=== PATIENT | female | born 1995 | race Caucasian/White ===

== ENCOUNTER 2017-11-05 07:43 | Outpatient (CLI) | payer OTHER ==
[2017-11-05 09:01] VITALS: BP 99/61
[2017-11-05] MEDS ORDERED: TYLENOL PO NR (09:12)
== END 2017-11-05 09:34 | disposition home or self-care (01) ==
LOC: TRG 07:43
PROVIDERS: ATTEND Obstetrics & Gynecology
DX: O47.1 False labor at or after 37 completed weeks of gestation (principal); Z3A.40 40 weeks gestation of pregnancy
CPT/HCPCS: 59025

== ENCOUNTER 2017-12-04 10:30 | Inpatient (IN) | payer OTHER ==
[2017-12-04] MEDS ORDERED: METHERGINE IM ONE (10:52)
[2017-12-04] MEDS ORDERED: CYTOTEC ONE (10:53)
[2017-12-04] MEDS ORDERED: DERMOPLAST TP PRN (10:56)
[2017-12-04] MEDS ORDERED: PHENERGAN PO PRN (10:56)
[2017-12-04] MEDS ORDERED: ZOFRAN IV PRN (10:56)
[2017-12-04] MEDS ORDERED: TUCKS PAD TP PRN (10:56)
[2017-12-04] MEDS ORDERED: BENADRYL PO PRN (10:56)
[2017-12-04] MEDS ORDERED: TYLENOL PO PRN (10:56)
[2017-12-04] MEDS ORDERED: LANSINOH TP PRN (10:56)
[2017-12-04] MEDS: PITOCin/NS 20 UNIT/1000ML DRIP 20 UNITS/1,000 ML BAG IV SCH ×2 (10:57→13:03)
[2017-12-04] MEDS ORDERED: DULCOLAX PR PRN (11:00)
[2017-12-04] MEDS ORDERED: SODIUM CHLORIDE FLUSH SYRINGE 10 ML IV NR (11:00)
--- NOTE | 2017-12-04 11:00 | History and Physical Report ---
<COLTENJAREK L - Last Filed: 12/04/17 11:05> History of Present Illness Date of examination: 12/04/17 Date of admission: 12/04/17 10:37 Chief complaint: complete upon arrival, no care History of present illness: Tunisian speaking, no Bahamian Language line utilized in obtain history No care Past History - Obstetrical History : 4 Para: 1 Hx # Term Pregnancies: 1 Number of Pregnancies: 0 Spontaneous Abortions: 2 Induced : 0 Number of Living Children: 1 Medications and Allergies Allergies Allergy/AdvReac Type Severity Reaction Status Date / Time No Known Allergies Allergy Verified 11/05/17 07:50 Active Meds: Active Medications Acetaminophen (Tylenol) 650 mg PO Q4H PRN PRN Reason: Pain MILD(1-3)/Fever >100.5/MCKEON Benzocaine/Menthol (Dermoplast) 1 spray TP PRN PRN PRN Reason: Pain, Mild (1-3) Bisacodyl (Dulcolax) 10 mg VT BID PRN PRN Reason: Constipation Diphenhydramine HCl (Benadryl) 25 mg PO Q6H PRN PRN Reason: Itching Docusate Sodium (Colace) 100 mg PO BID ADY Ferrous Sulfate (Feosol) 325 mg PO BID ADY Ibuprofen (Motrin) 600 mg PO Q6H ADY Multi-Ingredient Ointment (Lansinoh) 1 applic TP PRN PRN PRN Reason: Sore Nipples Witch Viola/Glycerin (Tucks Pad) 1 each TP PRN PRN PRN Reason: Hemorrhoid/cleansing/soothing - Obstetrical Cervical Dilatation: 10 Cervical Effacement Percentage: 100 station: +1 Results All other labs normal. Assessment and Plan 22 y/o , no care. Admission orders and labs ordered. - Patient Problems (1) (normal spontaneous vaginal delivery) Current Visit: Yes Status: Acute (2) No care in current Current Visit: Yes Status: Acute Qualifiers: Trimester: third trimester Qualified Code(s): O09.33 - Supervision of with insufficient care, third trimester <JAMILA PATIÑO - Last Filed: 12/04/17 11:49> History of Present Illness Date of admission: 12/04/17 10:37 Chief complaint: History obtained thru language line after delivery([place] [id number]). 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 denies: smoking, alcohol abuse, prescription drug abuse , IV drug use Medications and Allergies Active Meds: Active Medications Acetaminophen (Tylenol) 650 mg PO Q4H PRN PRN Reason: Pain MILD(1-3)/Fever >100.5/MCKEON Benzocaine/Menthol (Dermoplast) 1 spray TP PRN PRN PRN Reason: Pain, Mild (1-3) Bisacodyl (Dulcolax) 10 mg VT BID PRN PRN Reason: Constipation Diphenhydramine HCl (Benadryl) 25 mg PO Q6H PRN PRN Reason: Itching Docusate Sodium (Colace) 100 mg PO BID ADY Ferrous Sulfate (Feosol) 325 mg PO BID ADY Oxytocin/Sodium Chloride (Pitocin/Ns 20 Unit/1000ml Drip) 20 units in 1,000 mls @ 250 mls/hr IV DIRECT ADY Ibuprofen (Motrin) 600 mg PO Q6H ADY Magnesium Hydroxide (Milk Of Magnesia) 30 ml PO HS PRN PRN Reason: Constipation Measles/Mumps/Rubella Vaccine Live (M-M-R Ii Vaccine) 0.5 ml SUB-Q .ONCE ONE Stop: 12/05/17 10:01 Multi-Ingredient Ointment (Lansinoh) 1 applic TP PRN PRN PRN Reason: Sore Nipples Multivitamins/Iron/Calcium ( Vitamin) 1 each PO QDAY ADY Ondansetron HCl (Zofran) 4 mg IV Q8H PRN PRN Reason: Nausea And Vomiting Promethazine HCl (Phenergan) 25 mg PO Q6H PRN PRN Reason: Nausea And Vomiting Sodium Chloride (Sodium Chloride Flush Syringe 10 Ml) 10 ml IV PRN NR Stop: 12/14/17 23:59 Witch Viola/Glycerin (Tucks Pad) 1 each TP PRN PRN PRN Reason: Hemorrhoid/cleansing/soothing Review of Systems Genitourinary: contractions - Vital Signs Vital signs: Vital Signs Pulse BP 91 H 136/81 12/04/17 11:05 12/04/17 11:05 Temp Pulse Resp BP Pulse Ox 81 124/66 12/04/17 11:25 12/04/17 11:25 - Physical Exam Breasts: Positive: deferred Cardiovascular: Regular rate Lungs: Positive: Normal air movement Abdomen: Positive: normal appearance, soft. Negative: tenderness Genitourinary (Female): Positive: normal external genitalia, normal perenium Vulva: both: normal Extremities: Positive: normal. Negative: tenderness, edema - Obstetrical FHR: auscultation normal FHR comments: 120's Results All other labs normal. Assessment and Plan - Patient Problems (1) (normal spontaneous vaginal delivery) Current Visit: Yes Status: Acute (2) No care in current Current Visit: Yes Status: Acute Qualifiers: Trimester: third trimester Qualified Code(s): O09.33 - Supervision of with insufficient care, third trimester
--- NOTE | 2017-12-04 11:51 | Procedure Note ---
OB Delivery Note - Delivery Date of Delivery: 12/04/17 Surgeon: JAMILA PATIÑO Estimated blood loss: 200cc - Vaginal Delivery presentation: vertex Delivery position: OA Intrapartum events: no care Delivery induction: none Delivery monitor: external FHT Route of delivery: Delivery placenta: spontaneous (Intact) Episiotomy: none Delivery laceration: 1st degree ((R) labia, hemostatic no repair required, patient informed thru the lanugaue line) Anesthesia: none - A at 1 minute: 8 at 5 minutes: 9 Gender: Male (weight not available at this time)
[2017-12-04 12:04] LABS: Basophils % (Auto) 0.2 % (0.0-1.8); Eosinophils # (Auto) 0.3 K/mm3 (0.0-0.4); Eosinophils % (Auto) 2.5 % (0.0-4.3); Hematocrit 39.3 % (30.3-42.9); Hemoglobin 13.3 gm/dl (10.1-14.3); Lymphocytes # (Auto) 2.8 K/mm3 (1.2-5.4); Lymphocytes % (Auto) 26.4 % (13.4-35.0); Mean Corpuscular HGB Conc 34 % (30-34); Mean Corpuscular Hemoglobin 29 pg (28-32); Mean Corpuscular Volume 87 fl (79-97); Monocytes % (Auto) 9.3 % (0.0-7.3); Platelet Count 214 K/mm3 (140-440); Red Blood Count 4.52 M/mm3 (3.65-5.03); Red Cell Distribution Width 13.7 % (13.2-15.2)
[2017-12-04 12:38] LABS: Rubella IgG Antibody Immune (Immune)
[2017-12-04 12:44] LABS: Hepatitis C Virus Antibody Non-Reactive (NonReactive)
[2017-12-04 13:30] LABS: Amphetamine Screen,Urine PRESUMPTIVE NEGATIVE; Benzodiazepines Screen,Urine PRESUMPTIVE NEGATIVE; Cannabinoid Screen,Urine PRESUMPTIVE NEGATIVE; Cocaine Screen,Urine PRESUMPTIVE NEGATIVE; Methadone Screen,Urine PRESUMPTIVE NEGATIVE; Opiate Screen,Urine PRESUMPTIVE NEGATIVE
[2017-12-04] MEDS: MOTRIN PO SCH ×2 (17:06→20:39)
[2017-12-04] MEDS ORDERED: MILK OF MAGNESIA PO PRN (22:00)
[2017-12-04 23:12] LABS: Hematocrit 38.7 % (30.3-42.9)
[2017-12-05] MEDS: COLACE PO SCH ×2 (00:17→13:30)
[2017-12-05] MEDS: FEOSOL PO SCH ×2 (00:17→13:30)
[2017-12-05] MEDS: MOTRIN PO SCH ×2 (05:05→13:30)
--- NOTE | 2017-12-05 06:35 | Progress Note ---
Assessment and Plan Pt awake breast feeding. No c/o voiced. VSS FF below umb Lochia small perineum intact H&H 38 stable Doing well s/p vag delivery P: continue pathway d/c tomorrow Baby has 48 hr hold Subjective - Subjective Date of service: 12/05/17 (pt w/o complaint) Patient reports: appetite normal, voiding normally, pain well controlled, ambulating normally [employer]: doing well Objective - Vital Signs Latest vital signs: Vital Signs Temp Pulse Resp BP BP Pulse Ox 12/05/17 05:05 18 12/05/17 00:00 98.9 F 68 18 118/64 12/04/17 20:39 18 12/04/17 20:10 98.1 F 72 18 126/63 12/04/17 17:58 98.4 F 77 18 118/69 97 12/04/17 13:15 99 F 74 20 115/64 12/04/17 13:05 97.2 F L 18 12/04/17 12:26 84 129/65 12/04/17 12:11 76 119/63 12/04/17 11:25 81 124/66 12/04/17 11:10 97.2 F L 84 16 140/84 12/04/17 11:05 91 H 136/81 Intake and Output 12/04/17 12/04/17 12/05/17 14:59 22:59 06:59 Intake Total 525 240 240 Output Total 1300 Balance 525 -1060 240 Intake: IV 525 PITOCin/NS 20 UNIT/1000ML 525 DRIP 20 units In 1,000 ml @ 250 mls/hr IV DIRECT ADY Rx#:[id number] Oral 240 240 Output: Urine 1300 Void 600 Other: Total, Intake Amount 240 240 Total, Output Amount 600 Voiding Method Toilet # Voids Void 2 1 Weight 180 lb Estimated Blood Loss 200 Patient Weight 12/05/17 06:59 Weight 180 lb - Exam Breasts: Present: normal Cardiovascular: Present: Regular rate Lungs: Present: Normal air movement Abdomen: Present: normal appearance, soft, normal bowel sounds Uterus: Present: normal, fundal height below umbilicus Extremities: Present: normal Deep Tendon Reflex Grade: Normal +2 Incision: Present: normal - Labs Labs: Abnormal lab results 12/04/17 Range/Units 10:40 [place] % (Auto) 9.3 H (0.0-7.3) % [place] # 1.0 H (0.0-0.8) K/mm3
[2017-12-05] MEDS ORDERED: M-M-R II VACCINE SUB-Q ONE (10:00)
[2017-12-05] MEDS ORDERED: PRENATAL VITAMIN PO SCH (10:00)
[2017-12-06] MEDS: MOTRIN PO SCH (01:51)
[2017-12-06] MEDS: FEOSOL PO SCH ×2 (01:53→10:18)
--- NOTE | 2017-12-06 06:44 | Discharge Summary ---
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 Condition at discharge: Good Disposition: DC-01 TO HOME OR SELFCARE - Discharge Diagnoses (1) (normal spontaneous vaginal delivery) Status: Acute Comment: rto 6 weeks pp care Plan - Provider Discharge Summary Activity: routine, no sex for 6 weeks, no heavy lifting 4 weeks, no strenuous exercise Diet: routine Instructions: routine Additional instructions: [] Smoking cessation referral if applicable(refer to patient education folder for contact #) [] Refer to [facility] Booklet Call your doctor immediately for: * Fever > 100.5 * Heavy vaginal bleeding ( >1 pad per hour) * Severe persistent headache * Shortness of breath * Reddened, hot, painful area to leg or breast * Drainage or odor from incision. * Keep incision clean and dry at all times and follow doctor's instructions regarding bathing/showering - Follow up plan Follow up: PRIMARY CARE, [Primary Care Provider] - 7 Days ORA BAZZI CNM [Advanced Practice Nurse] - 6 Weeks (Congratulations! Please call [phone] to schedule your visit in 6 weeks. Call with any concerns. [facility] [address], [address] [facility] [id number])
[2017-12-06] MEDS: COLACE PO SCH (10:18)
[2017-12-06 19:55] VITALS: BP 113/75
== END 2017-12-06 15:59 | disposition home or self-care (01) | DRG 775 ==
LOC: TRG 10:30 → LD 10:37 → TRG 10:37 → OB 14:03
PROVIDERS: ADMIT Obstetrics & Gynecology; ATTEND Obstetrics & Gynecology
PROC: 10E0XZZ Delivery of Products of Conception, External Approach (ICD-10-PCS; principal; 2017-12-04)
DX: O70.0 First degree perineal laceration during delivery (principal); O90.81 Anemia of the puerperium; D64.9 Anemia, unspecified; Z3A.40 40 weeks gestation of pregnancy; Z37.0 Single live birth
CPT/HCPCS: 36415; 80307; 85014; 85018; 85025; 85660; 86592; 86706; 86762; 86803; 86850; 86900; 86901; 87806; 88307; 99211; G0463; J2210; J2590

== ENCOUNTER 2020-03-04 02:59 | Inpatient (IN) | payer SELFPAY ==
[2020-03-04] MEDS ORDERED: AMPICILLIN/NS 2 GM/100 ML 2 GM/100 ML BAG IV ONE ×2 (03:06→04:15)
[2020-03-04] MEDS ORDERED: LACTATED RINGERS 1,000 ML ONE (03:06)
[2020-03-04] MEDS ORDERED: OXYTOCIN DRIP 30,000 MILLIUNITS/500 ML BAG IV ONE (03:07)
--- NOTE | 2020-03-04 03:52 | History and Physical Report ---
History of Present Illness Date of examination: 03/04/20 Chief complaint: labor pains History of present illness: Early entry to care at [facility]. course complicated by non-compliance (several missed appts in first and second trimester). 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 - Obstetrical History Expected Date of Delivery: 03/03/20 Actual Gestation: 40 Week(s) 1 Day(s) : 5 Hx # Term Pregnancies: 2 Spontaneous Abortions: 1 Induced : 1 Number of Living Children: 2 #1 Infant Gender: Female year: 2,015 Birthweight: 3.629 kg Method of Delivery: Vaginal Gestational age at delivery: 40 Complications: none #2 Gender: Male year: 2,018 Birthweight: 4.082 kg Method of Delivery: Vaginal Gestational age at delivery: 40 Complications: none Medications and Allergies Allergies Allergy/AdvReac Type Severity Reaction Status Date / Time No Known Allergies Allergy Verified 11/05/17 07:50 Home Medications Medication Instructions Recorded Confirmed Last Taken Type Formula Tablet 1 tab PO QDAY 12/04/17 12/04/17 2 Months Ago History ~10/04/17 Review of Systems All systems: negative - Vital Signs Vital signs: Vital Signs Pulse BP 89 134/73 03/04/20 03:11 03/04/20 03:11 Temp Pulse Resp BP Pulse Ox 93 H 134/73 99 03/04/20 03:45 03/04/20 03:11 03/04/20 03:45 - Physical Exam Breasts: Positive: normal Cardiovascular: Regular rate Lungs: Positive: Normal air movement Abdomen: Positive: normal appearance, soft Genitourinary (Female): Positive: normal external genitalia, normal perenium Vulva: both: normal Uterus: Positive: enlarged Anus/Rectum: Positive: normal perianal skin Extremities: Positive: normal - Obstetrical FHR: auscultation normal Uterine Contraction Monitor Mode: External Cervical Dilatation: 10 Cervical Effacement Percentage: 100 station: +3 Uterine Contraction Pattern: Regular Uterine Contraction Intensity: Strong/Firm Results All other labs normal. Assessment and Plan A: IUP at 40 1/7 weeks Active Labor GBS positive P: Admit to L&D per routine orders GBS prophylaxis Anticipate
--- NOTE | 2020-03-04 04:14 | Procedure Note ---
OB Delivery Note - Delivery Date of Delivery: 03/04/20 (0321) Surgeon: JER RAMAN Estimated blood loss: 100cc - Vaginal Delivery presentation: vertex Delivery position: OA Intrapartum events: precipitous labor- <3hr Delivery induction: none Delivery monitor: external FHT, external uterine Route of delivery: Delivery placenta: spontaneous Delivery cord: 3 umbilical vessels Episiotomy: none Delivery laceration: none Anesthesia: none Delivery comments: Precipitous delivery of a live 8'3 female with Apgars 8 and 9 over an intact perineum at 0321 on 03/04/2020. Cord double clamped and cut by RN and placed on warmer. Spontaneous delivery of a complete and intact placenta with Mccull[place] side presenting at 0327. Fundus is firm and midline located 4 below the U. Lochia is scant. - Infant A at 1 minute: 8 at 5 minutes: 9 Infant Gender: Female (8'3)
[2020-03-04] MEDS ORDERED: ePHEDrine SULFATE 50 MG/1 ML INJ IV PRN (04:15)
[2020-03-04] MEDS ORDERED: TERBUTALINE 1 MG/1 ML INJ SUB-Q PRN (04:15)
[2020-03-04] MEDS ORDERED: MINERAL OIL 30 ML ORAL LIQD PO PRN (04:15)
[2020-03-04] MEDS ORDERED: diphenhydrAMINE 25 MG CAP PO PRN (04:19)
[2020-03-04] MEDS ORDERED: HYDROcodone/ACETAMINOPHEN 5-325 MG TAB PO PRN (04:19)
[2020-03-04] MEDS ORDERED: WITCH HAZEL/ GLYCERIN PAD TP PRN (04:19)
[2020-03-04] MEDS ORDERED: LANOLIN/ZINC/DIMETHICONE (LANSINOH) 7 GM TP PRN (04:19)
[2020-03-04 04:24] LABS: Hematocrit 37.5 % (30.3-42.9); Hemoglobin 12.9 gm/dl (10.1-14.3); Mean Corpuscular HGB Conc 34 % (30-34); Mean Corpuscular Volume 88 fl (79-97); Platelet Count 214 K/mm3 (140-440); Red Blood Count 4.28 M/mm3 (3.65-5.03); Red Cell Distribution Width 13.1 % (13.2-15.2)
[2020-03-04] MEDS ORDERED: OXYTOCIN DRIP 30 UNITS/500 ML BAG IV SCH (05:00)
[2020-03-04] MEDS ORDERED: LACTATED RINGERS 1,000 ML IV SCH (05:00)
[2020-03-04] MEDS: IBUPROFEN 600 MG TAB PO SCH ×4 (06:03→23:26)
[2020-03-04] MEDS ORDERED: AMPICILLIN/NS 1 GM/50 ML 1 GM/50 ML BAG IV SCH (07:06)
[2020-03-04 19:56] LABS: Hematocrit 37.2 % (30.3-42.9); Hemoglobin 12.5 gm/dl (10.1-14.3)
[2020-03-05] MEDS: IBUPROFEN 600 MG TAB PO SCH ×4 (05:49→23:41)
--- NOTE | 2020-03-05 15:32 | Progress Note ---
Assessment and Plan A: day 1 S/P . P: Plan discharge home tomorrow. Subjective - Subjective Date of service: 03/05/20 Principal diagnosis: day 1 S/P Patient reports: appetite normal, voiding normally, pain well controlled, flatus, ambulating normally, no dizzy ambulation, no nauseated [place]: doing well Objective - Vital Signs Latest vital signs: Vital Signs Temp Pulse Resp BP BP Pulse Ox 03/05/20 07:39 98.2 F 77 18 110/70 93 03/05/20 05:49 20 03/05/20 00:00 98 F 64 16 102/75 03/04/20 23:26 20 03/04/20 19:30 98.6 F 69 16 114/60 03/04/20 16:00 98.2 F 82 20 99/46 Intake and Output 03/04/20 03/05/20 03/05/20 23:59 07:59 15:59 Intake Total 480 200 600 Output Total 1200 Balance -720 200 600 Intake: Oral 480 200 120 Intake, Free Water 480 Output: Urine 1200 Void 1200 Other: Total, Intake Amount 240 200 120 Total, Output Amount 300 # Voids Void 1 1 1 - Exam Cardiovascular: Present: Regular rate, No murmurs Lungs: Present: Clear to auscultation Abdomen: Present: normal appearance, soft. Absent: distention, tenderness, guarding, rigidity Uterus: Present: normal, firm, fundal height below umbilicus. Absent: bogginess, tenderness Extremities: Present: normal. Absent: tenderness, edema
[2020-03-06] MEDS: IBUPROFEN 600 MG TAB PO SCH ×2 (05:06→12:11)
--- NOTE | 2020-03-06 10:56 | Progress Note ---
Assessment and Plan A: day 2 S/P . P: Discharge patient home today. Discussed with patient discharge instructions and warning signs. Advised patient to continue taking PNV daily. Advised patient to avoid intercourse, lifting, housework, driving. 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 Patient voiced understanding of all instructions. Subjective - Subjective Date of service: 03/06/20 Principal diagnosis: day 2 S/P Interval history: Patient desires discharge home today. Patient reports: appetite normal, voiding normally, pain well controlled, flatus, ambulating normally, no dizzy ambulation, no nauseated : doing well Objective - Vital Signs Latest vital signs: Vital Signs Temp Pulse Resp BP BP Pulse Ox 03/06/20 07:22 97.6 F 73 18 107/63 98 03/06/20 00:30 98.1 F 71 18 98 03/05/20 16:05 98.1 F 73 18 126/76 97 Intake and Output 03/05/20 03/06/20 03/06/20 23:59 07:59 15:59 Intake Total 600 120 Balance 600 120 Intake: Oral 360 120 Intake, Free Water 240 Other: Total, Intake Amount 360 120 # Voids Void 2 1 - Exam Cardiovascular: Present: Regular rate, No murmurs Lungs: Present: Clear to auscultation Abdomen: Present: normal appearance, soft, normal bowel sounds. Absent: distention, tenderness, guarding, rigidity Uterus: Present: normal, firm, fundal height below umbilicus. Absent: bogginess, tenderness Extremities: Present: normal. Absent: tenderness, edema
--- NOTE | 2020-03-06 11:01 | Discharge Summary ---
Providers - Providers Date of Admission: 03/04/20 03:21 Date of discharge: 03/06/20 Attending physician: STEFAN PAN Primary care physician: STEFAN PAN Hospitalization Reason for admission: active labor Delivery: Laceration: none Other procedures: none complications: none Discharge diagnosis: IUP at term delivered baby: female Pertinent studies: Labs Hospital course: Normal hospital course. Condition at discharge: Good Disposition: DC-01 TO HOME OR SELFCARE - Discharge Diagnoses (1) Term delivered Status: Acute Plan - Provider Discharge Summary Activity: routine, no sex for 6 weeks, no heavy lifting 4 weeks, no strenuous exercise Diet: routine Instructions: routine Additional instructions: Call your doctor immediately for: * Fever > 100.5 * Heavy vaginal bleeding ( >1 pad per hour) * Severe persistent headache * Shortness of breath * Reddened, hot, painful area to leg or breast - Follow up plan Follow up: STEFAN PAN MD [Primary Care Provider] - 04/06/20
[2020-03-06 13:58] VITALS: BP 107/66
== END 2020-03-06 14:30 | disposition home or self-care (01) | DRG 807 ==
LOC: TRG 02:59 → APU 02:59 → LD 03:09 → TRG 03:48 → OB 05:49
PROVIDERS: ADMIT Obstetrics & Gynecology; ATTEND Obstetrics & Gynecology
PROC: 10E0XZZ Delivery of Products of Conception, External Approach (ICD-10-PCS; principal; 2020-03-04)
DX: O99.824 Streptococcus B carrier state complicating childbirth (principal); Z37.0 Single live birth; Z3A.40 40 weeks gestation of pregnancy; Z20.828 Contact with and (suspected) exposure to other viral communicable diseases; O62.3 Precipitate labor
CPT/HCPCS: 36415; 85014; 85018; 85027; 86850; 86900; 86901; G0378; J0290; J2590; J7120; U0003-CS

== ENCOUNTER 2021-05-06 15:00 | Emergency (ER) | payer MEDICAID ==
[2021-05-06] MEDS ORDERED: SODIUM CHLORIDE 0.9% 1000 ML 1,000 ML IV ONE (16:53)
[2021-05-06] MEDS ORDERED: KETOROLAC 30 MG/1 ML INJ IV ONE (16:53)
--- NOTE | 2021-05-06 17:01 | Emergency Department Report ---
HPI - General Chief Complaint: Back Pain/Injury Time Seen by Provider: 05/06/21 16:06 - HPI HPI: 26-year-old female with no past medical history presents complaining of 3 weeks of right flank pain as well as dysuria. Patient states that the symptoms star socorro randomly 3 weeks ago with pain in her right lower back which she describes as sharp. This occurred while the patient was in [place] and she went to a clinic where she was diagnosed with a urinary tract infection. She was given a prescription for amoxicillin which she says she only took for 2 days and then stopped taking because it did not help. The pain seemed to subside somewhat at that point but then returned and has gotten progressively more painful since then. She says she came in today to the emergency department because the pain became unbearable. However, she states she has not taken any pain medications, instead taking something for sleep last night. In addition to the back pain she reports dysuria and urgency. Her last menstrual period was on April 14. She denies any exertional or traumatic injury to the back. She denies any associated fever/chills, headache, vision change, chest pain, shortness of breath, nausea/vomiting, abdominal pain, vaginal bleeding, or any other complaints. ED Past Medical Hx - Past Medical History Previous Medical History?: No Hx Hypertension: No Hx Congestive Heart Failure: No Hx Diabetes: No Hx Deep Vein Thrombosis: No Hx Renal Disease: No Hx Sickle Cell Disease: No Hx Seizures: No Hx Asthma: No Hx COPD: No Hx HIV: No - Surgical History Past Surgical History?: No - Social History Smoking Status: Never Smoker - Medications Home Medications: Home Medications Medication Instructions Recorded Confirmed Last Taken Type Formula Tablet 1 tab PO QDAY 12/04/17 03/05/20 2 Months Ago History ~10/04/17 Cefpodoxime Proxetil 100 mg PO BID #28 tablet 05/06/21 Unknown Rx Ibuprofen [Motrin 600 MG tab] 600 mg PO Q8H PRN #20 tablet 05/06/21 Unknown Rx ED Review of Systems ROS: Stated complaint: ABD PAIN Other details as noted in HPI Constitutional: denies: chills, fever Eyes: denies: eye pain, vision change ENT: denies: throat pain, congestion Respiratory: denies: cough, shortness of breath Cardiovascular: denies: chest pain, palpitations Gastrointestinal: denies: abdominal pain, nausea, vomiting Genitourinary: urgency, dysuria, frequency. denies: hematuria, discharge Musculoskeletal: back pain. denies: arthralgia Skin: denies: rash, lesions Neurological: denies: headache, weakness, numbness Psychiatric: denies: anxiety, depression Physical Exam - Physical Exam Vital Signs: Vital Signs 05/06/21 15:03 Temperature 98.4 F Pulse Rate 88 Respiratory 15 Rate Blood Pressure 119/78 O2 Sat by Pulse 99 Oximetry Physical Exam: GENERAL: Well developed and well nourished. No acute distress HEAD: Normocephalic. No obvious signs of trauma. ENT: Dry mucous membranes. EYES: Extraocular movements are intact. Pupils are equal round and reactive to light bilaterally NECK: Supple. Full ROM is intact. Trachea is midline. LUNGS: Nonlabored breathing. Equal chest rise bilaterally. Clear to auscultation bilaterally. CARDIOVASCULAR: Regular rate and rhythm. No murmurs or rubs. VASCULAR: Cap refill < 2 seconds ABDOMEN: Abdomen is soft and nondistended. There is mild right lower quadrant abdominal tenderness without guarding or rebound tenderness SKIN: Skin is warm and dry NEURO: Patient is awake, alert, and oriented. 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 No focal deficits. Normal motor and sensory exam throughout. Normal speech. MUSCULOSKELETAL: No obvious deformities. No significant tenderness. Normal ROM throughout. BACK/SPINE: No midline tenderness or step-offs of the C/T/L spine. Right CVA tenderness ED Course Vital Signs 05/06/21 15:03 Temperature 98.4 F Pulse Rate 88 Respiratory 15 Rate Blood Pressure 119/78 O2 Sat by Pulse 99 Oximetry ED Medical Decision Making - Lab Data Result diagrams: 05/06/21 17:02 05/06/21 17:02 - Radiology Data Radiology results: report reviewed - Medical Decision Making 26-year-old female presents complaining of 3 weeks of low back pain. She reports she was diagnosed with a UTI but stopped taking the prescribed antibiotic after 2 days. Denies traumatic injury. She is afebrile with normal vital signs. On physical exam she has dry mucous membranes. She has right CVA tenderness without midline tenderness. She has a nonfocal neurologic exam. She has mild right lower quadrant abdominal tenderness. We will perform work-up with a full set of labs and CT of the abdomen pelvis to assess for evidence of appendicitis, cholecystitis, colitis, pancreatitis, versus other intra-abdominal abnormality to explain the patient's symptoms. We will give Toradol and 1 L of IV fluids and reassess. Labs have resulted and reveal no significant leukocytosis or anemia. Creatinine is within normal range and there are no significant electrolyte abnormalities. Urinalysis shows evidence of infection. Culture will be sent. I have ordered 1 dose of IV ceftriaxone now. On repeat assessment at 7:15 PM, the patient reports she still has some pain but it is much improved. CT of the abdomen and pelvis shows no intra-abdominal abnormality but there is mild L5 spondylolysis and spondylolisthesis Critical care attestation.: If time is entered above; I have spent that time in minutes in the direct care of this critically ill patient, excluding procedure time. ED Disposition Clinical Impression: Lumbar spondylolysis, Pyelonephritis Disposition: 01 HOME / SELF CARE / HOMELESS Is pt being admited?: No Condition: Stable Instructions: Pyelonephritis, Adult, Spondylolysis Prescriptions: Cefpodoxime Proxetil 100 mg PO BID #28 tablet Ibuprofen [Motrin 600 MG tab] 600 mg PO Q8H PRN #20 tablet PRN Reason: Pain Referrals: [facility] [Provider Group] - 3-5 Days ASIF MCCARTHY II, MD [Staff Physician] - 3-5 Days Print Language: CAMEROONIAN
[2021-05-06 17:45] LABS: Basophils % (Auto) 0.4 % (0.0-1.8); Eosinophils # (Auto) 0.5 K/mm3 (0.0-0.4); Eosinophils % (Auto) 4.9 % (0.0-4.3); Hematocrit 43.7 % (30.3-42.9); Hemoglobin 13.9 gm/dl (10.1-14.3); Lymphocytes # (Auto) 3.4 K/mm3 (1.2-5.4); Lymphocytes % (Auto) 31.2 % (13.4-35.0); Mean Corpuscular HGB Conc 32 % (30-34); Mean Corpuscular Volume 86 fl (79-97); Monocytes # (Auto) 0.8 K/mm3 (0.0-0.8); Monocytes % (Auto) 7.6 % (0.0-7.3); Platelet Count 317 K/mm3 (140-440); Red Blood Count 5.08 M/mm3 (3.65-5.03); Red Cell Distribution Width 13.2 % (13.2-15.2)
[2021-05-06 18:00] LABS: Alanine Aminotransferase 32 units/L (7-56); Albumin 4.6 g/dL (3.9-5); BUN/Creatinine Ratio 17; Bilirubin,Direct < 0.2 mg/dL (0-0.2); Blood Urea Nitrogen 12 mg/dL (7-17); Calcium 9.4 mg/dL (8.4-10.2); Hemolysis Index 1
[2021-05-06 18:16] LABS: Bacteria,Urine 2+ /HPF (Negative); Bilirubin,Urine NEG (Negative); Blood,Urine NEG (Negative); Color,Urine Yellow (Yellow); Mucus,Urine 3+ /HPF; Urobilinogen,Urine < 2.0 mg/dL (<2.0)
[2021-05-06] MEDS ORDERED: cefTRIAXone/NS 2 GM/100 ML 2 GM/100 ML BAG IV ONE (18:21)
--- NOTE | 2021-05-06 20:01 | Cat Scan Report ---
CT OF THE ABDOMEN AND PELVIS WITH INTRAVENOUS CONTRAST INDICATION / CLINICAL INFORMATION: RLQ tenderness. TECHNIQUE: The patient received 100 cc Omnipaque [address] scans at this location are performed using CT dose reduction for ALARA by means of automated exposure control. COMPARISON: None available. FINDINGS: ABDOMEN: The liver, spleen, gallbladder, bile ducts, pancreas, adrenal glands, kidneys and bowel demo nstrate no significant abnormality. No vascular abnormality is seen. There is no evidence of adenopat hy. The lung bases are clear. PELVIS: The distal ureters and urinary bladder are normal. The uterus is retroverted. There is a T-sh aped IUD well situated within the central uterus. There is no evidence of adnexal mass or free fluid. A normal appendix is present. There is no evidence of diverticulitis. I do not identify a hernia. There is bilateral spondylolysis at L5 with minimal associated anterolisthesis and spondylosis. IMPRESSION: 1. No acute abnormality is identified. There is no CT evidence of acute appendicitis. 2. Bilateral spondylolysis at L5 with minimal associated spondylolisthesis and spondylosis. Signer Name: Jhoan William MD Signed: 05/06/2021 7:57 PM Workstation Name: [id number]
[2021-05-06 21:26] VITALS: BP 118/71
== END 2021-05-06 21:00 | disposition home or self-care (01) ==
LOC: ED 15:00
DX: M47.896 Other spondylosis, lumbar region (principal); N12 Tubulo-interstitial nephritis, not specified as acute or chronic
CPT/HCPCS: 36415; 74177; 80048; 80076; 81001; 83690; 84703; 85025; 96361; 96365; 96375; 99284; J0696; J1885; J7030; Q9967; Q0162